=== PATIENT | male | born 1965 | race Caucasian/White ===

== ENCOUNTER 2020-09-28 06:18 | Day surgery (SDC) | payer OTHER ==
[~2020-09-28] VITALS: Ht 175.3 cm; Wt 74.8 kg
[2020-09-28] VITALS (7 sets, daily range): BP systolic 111–141; BP diastolic 66–83
[~2020-09-28 06:18] MED LIST: LACTATED RINGERS 1,000 ML ONE; LEVAQUIN 100 ML IV ONE
[2020-09-28] MEDS ORDERED: LACTATED RINGERS 1,000 ML IV SCH ×2 (06:30→09:30)
[2020-09-28 06:47] LABS: BASOPHIL # 0.1 10^3/uL (0.0-0.1); BASOPHIL % 0.6 % (0.0-0.2); EOSINOPHIL # 0.1 10^3/uL (0.0-0.2); EOSINOPHIL % 0.9 % (0.0-5.0); LYMPHOCYTES # 2.06 10^3/uL1 (1.0-4.8); LYMPHOCYTES % 26.3 % (24.0-44.0); MEAN CORP HGB 29.6 pg (26-34); MONOCYTES # 0.8 10^3/uL (0.3-0.8); MONOCYTES % 9.8 % (5.0-12.0); NEUTROPHIL # 4.9 10^3/uL (1.8-7.7); NEUTROPHILS % 62.3 % (41.0-85.0); RED CELL DISTRIBUTION WIDTH 11.8 % (11.5-14.5)
[2020-09-28 06:56] LABS: CALCIUM 9.4 mg/dL (8.4-10.5); CARBON DIOXIDE 27.7 mmol/L (20.0-32)
--- NOTE | 2020-09-28 06:58 | PCM.EKG ---
[facility] Test Date: 2020-09-28 Test Time: 06:55:12 Pat Name: CATY TOURE Department: Room: Gender: M Experimental [employer] S[employer]ic: STACY : 1965 Requested By: JENNIFER KEMP Order Number: [id number] Reading MD: Measurements Intervals [place] Rate: 92 P: 75 CO: 139 QRS: 18 QRSD: 101 T: 61 QT: 359 QTc: 445 Interpretive Statements Sinus rhythm RSR' in V1 or V2, probably normal variant No previous ECG available for comparison Please click the below link to view image of tracing.
[2020-09-28] MEDS ORDERED: SODIUM CHLORIDE IRR BOTTLE IR ONE (07:24)
[2020-09-28] MEDS ORDERED: SUBLIMAZE ONE (07:48)
[2020-09-28] MEDS ORDERED: VERSED ONE (07:49)
[2020-09-28] MEDS ORDERED: DIPRIVAN IV ONE (07:49)
[2020-09-28] MEDS ORDERED: TRAM50TA PO (09:10)
[2020-09-28] MEDS ORDERED: CIPR500T86 PO (09:10)
[2020-09-28] MEDS ORDERED: LACTATED RINGERS 1,000 ML ONE (09:14)
--- NOTE | 2020-09-28 11:16 | OPH ---
DATE OF SURGERY: 09/28/2020 DICTATOR NAME: Victor Manuel Bai MD PREOPERATIVE DIAGNOSIS: Phimosis. FINAL DIAGNOSIS: Phimosis. PROCEDURE: Circumcision. DESCRIPTION OF PROCEDURE: The patient was brought to the operating room and was put in supine position on the operating room table. After the patient was given a satisfactory and adequate LMA general anesthesia, the genitalia were then prepped and draped aseptically in the usual manner. First, the prepuce was retracted thus far back as possible and then a circumferential incision was done in the mucosa around 1 cm from the coronal sulcus. A portion of incision was done in the skin and then the skin and mucosa was excised circumferentially. All bleeders were promptly fulgurated. After adequate hemostasis, the skin and mucosa was approximated with 2-0 chromic gut in an interrupted fashion. At this point, there was no bleeding noted. Dressings were applied. The patient was then awakened, was transferred to the recovery room in stable condition. Victor Manuel Bai MD DR: ROCK TID: [id number] RECEIPT: [id number]
== END 2020-09-28 10:50 | disposition home or self-care (01) ==
LOC: SDC 06:18
PROVIDERS: ATTEND Urology
DX: N47.1 Phimosis (principal); Z88.0 Allergy status to penicillin; Z79.01 Long term (current) use of anticoagulants
CPT/HCPCS: 36415; 54161; 80048; 85025; 85610; 85730; 93005; A4217; J1956; J2250; J3010; J3490; J7120 ×2